=== PATIENT | male | born 1990 | race Caucasian/White ===

== ENCOUNTER 2019-10-28 09:05 | Emergency (ER) | payer BC ==
[~2019-10-28] VITALS: Ht 175.3 cm; Wt 86.2 kg
[2019-10-28 09:08] VITALS: BP 125/76
--- NOTE | 2019-10-28 09:20 | NUR ---
XRAY AT BEDSIDE
--- NOTE | 2019-10-28 09:30 | NUR ---
C/O L ANKLE PAIN S/P PLAYING BASEBALL X YESTERDAY. +CMS. NO DEFMORITY NOTED. PT REPORTS TAKING ADVIL WITH LITTLE RELIEF. PT ALERT AND AWAKE, AMBULATES WITH LIMP. VS STABLE. PAIN 03/28. MED HX: L FEMUR FRACTURE & SURGERY 12 YEARS AGO.
--- NOTE | 2019-10-28 09:35 | NUR ---
PT REFUSES ICE PACK
[2019-10-28] MEDS ORDERED: IBUPROFEN 800 MG TAB PO ONE (09:55)
--- NOTE | 2019-10-28 09:58 | NUR ---
MOTRIN PO ADMINISTERED
--- NOTE | 2019-10-28 10:02 | NUR ---
APPLIED WADE WRAP TO LEFT ANKLE WITHOUT ANY ISSUES. PT DEMONSTRATED PROPER USE OF CRUTCHES
[2019-10-28 10:05] VITALS: BP 120/67
--- NOTE | 2019-10-28 10:05 | NUR ---
Patient discharged with v/s stable. Written and verbal after care instructions given and explained REGARDIGN ANKLE SPRAIN. Patient alert, oriented and verbalized understanding of instructions. Ambulatory with CRUTCHES. All questions addressed prior to discharge. ID band removed. Patient advised to follow up with PMD. Rx of MOTRIN given. Patient educated on indication of medication including possible reaction and side effects. Opportunity to ask questions provided and answered. PT INSTRUCTED TO APPLY ICE 2-3 TIMES A DAY FOR APPROX 20 MIN
--- NOTE | 2019-10-28 10:05 | NUR ---
PT VERBALIZES UNDERSTANDING OF CRUTCH USE. PULSES WNL. NADR. PT STATES SOME PAIN RELIEF WITH WADE WRAP. PAIN 01/26
== END 2019-10-28 10:05 | disposition home or self-care (01) ==
LOC: MED 09:05
DX: S93.402A Sprain of unspecified ligament of left ankle, initial encounter (principal); R03.0 Elevated blood-pressure reading, without diagnosis of hypertension; W22.8XXA Striking against or struck by other objects, initial encounter; Y93.89 Activity, other specified; Y92.89 Other specified places as the place of occurrence of the external cause; Y99.8 Other external cause status
CPT/HCPCS: 73610; 99283; Q0092